=== PATIENT | female | born 1930 | race Caucasian/White ===

== ENCOUNTER 2017-10-03 23:33 | Inpatient (IN) | payer MEDICARE, MEDICAID ==
[~2017-10-03] VITALS: Ht 121.9 cm; Wt 46.7 kg
[2017-10-04 00:22] LABS: BASOPHILS % 0.6 % (0.0-2.0); EOSINOPHILS % 3.7 % (0.0-5.0); HEMATOCRIT. 38.4 % (36.0-48.0); LYMPHOCYTES % 19.5 % (20.0-50.0); MEAN CORPUSCULAR HEMOGLOBIN 25.5 pg (28.0-32.0); MEAN CORPUSCULAR VOLUME 81.5 fL (81.0-99.0); MEAN PLATELET VOLUME 8.5 fl (7.4-10.4); NEUTROPHILS % 62.2 % (40.0-76.0); PLATELET 325 x1000/uL (130-400); RED BLOOD CELL COUNT 4.71 mill/uL (4.2-5.4); RED CELL DISTRIBUTION WIDTH 18.1 % (11.6-14.6)
[2017-10-04 00:26] LABS: CHLORIDE 104 mEq/L (98-107)
[2017-10-04 00:45] LABS: ETHANOL BLOOD < 10 mg/dL
[2017-10-04 01:31] LABS: CLARITY URINE CLEAR (CLEAR); COLOR URINE YELLOW (YELLOW); KETONES URINE NEGATIVE (NEGATIVE); LEUKOCYTE ESTERASE URINE 1+ (NEGATIVE); NITRITE URINE POSITIVE (NEGATIVE); OCCULT BLOOD URINE 2+ (NEGATIVE); PH URINE 6.5 (4.5-8.0); PROTEIN URINE TRACE (NEGATIVE); SPECIFIC GRAVITY URINE 1.017 (1.005-1.030); UROBILINOGEN URINE 0.2 E.U./dL (0.2-1.0)
[2017-10-04 01:32] LABS: *AMPHETAMINES SCREEN URINE NEGATIVE (NEGATIVE); *BARBITURATES SCREEN URINE NEGATIVE (NEGATIVE); *BENZODIAZEPINES SCREEN URINE NEGATIVE (NEGATIVE); *COCAINE SCREEN URINE NEGATIVE (NEGATIVE); CANNABINOID URINE SCREEN NEGATIVE (NEGATIVE); METHADONE URINE SCREEN NEGATIVE (NEGATIVE); OPIATES URINE SCREEN NEGATIVE (NEGATIVE); PHENCYCLIDINE URINE SCREEN NEGATIVE (NEGATIVE)
[2017-10-04] MEDS ORDERED: VANCOMYCIN 1,500 MG in DEXT 5% WATER 250 ML IV SCH (04:30)
[2017-10-04] MEDS ORDERED: SODIUM CHLORIDE 0.9% 1000ML BAG (SEPSIS BOLUS) IV NR (04:30)
[2017-10-04] MEDS ORDERED: PIPERACILLIN/TAZOBACTAM 3.375GM/50ML PREMIX IV ONE (04:30)
[2017-10-04] MEDS ORDERED: VANCOMYCIN 1250MG in DEXTROSE 5% WATER 250ML IV NR (05:00)
[2017-10-04] MEDS ORDERED: PIPERACILLIN/TAZ 2.25G PREMIX 50 ML IV NR (05:00)
[2017-10-04] MEDS ORDERED: IPRATROPIUM/ALBUTEROL 0.5-3(2.5)MG/3ML NEB INH PRN (06:45)
[2017-10-04] MEDS ORDERED: KETOROLAC 15MG/ML VIAL IV PRN (06:45)
[2017-10-04] MEDS ORDERED: DIPHENHYDRAMINE 50MG/ML VIAL IV PRN (06:45)
[2017-10-04] MEDS ORDERED: GUAIFENESIN 200MG/10ML SUGAR FREE UDC PO PRN (06:45)
[2017-10-04] MEDS ORDERED: ONDANSETRON HCL 4MG/2ML VIAL IV PRN (06:45)
[2017-10-04] MEDS ORDERED: NITROGLYCERIN 0.4MG TABLET SL SL PRN (06:45)
[2017-10-04] MEDS ORDERED: TRAMADOL 50MG TABLET PO PRN (06:45)
[2017-10-04] MEDS ORDERED: ACETAMINOPHEN 325MG TABLET PO PRN (06:45)
[2017-10-04] MEDS ORDERED: MAGNESIUM/ALUMINUM HYDROXIDE/SIMETHICONE 30ML UDC PO PRN (06:45)
[2017-10-04] MEDS ORDERED: NA PHOS,M-B/NA PHOS,DI-BA ENEMA 118ML PR PRN (06:45)
[2017-10-04 08:00] VITALS: BP 147/81
[2017-10-04 09:00] VITALS: BP 147/81
[2017-10-04] MEDS ORDERED: ENOXAPARIN 40MG/0.4ML SYR SUBCUT SCH (09:00)
[2017-10-04 09:37] LABS: FOLIC ACID (FOLATE) SERUM >20 ng/mL ng/mL (>5.38)
[2017-10-04] MEDS ORDERED: DEXTROSE 50% WATER 50ML SYRINGE IV PRN ×2 (09:45)
[2017-10-04 09:46] LABS: VITAMIN B12 SERUM 719 pg/mL (211-911)
[2017-10-04] MEDS ORDERED: LEVOFLOXACIN 500MG PREMIX 100 ML IV SCH (10:00)
[2017-10-04] MEDS: ASPIRIN 325MG EC TABLET PO SCH (10:29)
[2017-10-04] MEDS: FAMOTIDINE 20MG/2ML VIAL IV SCH (10:29)
[2017-10-04] MEDS: LISINOPRIL 20MG TABLET PO SCH ×2 (10:29→21:22)
[2017-10-04] MEDS ORDERED: INSULIN LISPRO 100 UNITS/ML SUBCUT SCH (10:30)
[2017-10-04] MEDS: INSULIN LISPRO 100 UNITS/ML SUBCUT SCH ×4 (10:30→21:24)
[2017-10-04] MEDS: BLOOD SUGAR DIAGNOSTIC STRIP TEST SCH ×3 (10:30→21:38)
[2017-10-04 10:49] LABS: T4 FREE 1.06 ng/dL (0.76-1.46)
[2017-10-04 12:00] VITALS: BP 141/57
[2017-10-04] MEDS: CEFTRIAXONE 1 G PREMIX 50 ML IV SCH (14:00)
[2017-10-04 16:00] VITALS: BP 125/62
[2017-10-04 16:09] LABS: CREATINE KINASE 19 IU/L (26-192); CREATINE KINASE MB FRACTION < 0.5 ng/mL (0.5-3.6); TROPONIN I < 0.02 ng/mL (0.00-0.04)
[2017-10-04] MEDS ORDERED: INFLUENZA VIRUS VACCINE 0.5ML SYR IM ONE (16:30)
[2017-10-04] MEDS ORDERED: PNEUMOCOCCAL 23-VAL P-SAC VAC 0.5 ML IM ONE (16:30)
[2017-10-04] MEDS ORDERED: METF500T4 PO (17:43)
[2017-10-04] MEDS ORDERED: GABA-529 PO (17:43)
[2017-10-04] MEDS ORDERED: DOCU-150 PO (17:43)
[2017-10-04] MEDS ORDERED: LOSA25TA12 PO (17:43)
[2017-10-04] MEDS ORDERED: LORA1TAB PO (17:43)
[2017-10-04] MEDS ORDERED: CARV6.2548 PO (17:43)
[2017-10-04] MEDS ORDERED: MEMA5TAB7 PO (17:43)
[2017-10-04] MEDS ORDERED: MONT10TA24 PO (17:43)
[2017-10-04] MEDS ORDERED: DOXE50CA4 PO (17:43)
[2017-10-04] MEDS ORDERED: OMEP40CA34 PO (17:43)
[2017-10-04] MEDS: MONTELUKAST SODIUM 10MG TABLET PO SCH (19:06)
[2017-10-04 20:00] VITALS: BP 117/73
[2017-10-04] MEDS: CARVEDILOL 6.25 MG TABLET PO SCH (21:22)
[2017-10-05] VITALS: BP 136/55
[2017-10-05] MEDS ORDERED: NEOSODR OP (01:03)
[2017-10-05] MEDS ORDERED: NEOMYCIN/POLYMYXN B/GRAMICIDIN OPHTH DROPS 10ML LEFTEYE SCH (01:15)
[2017-10-05 04:00] VITALS: BP 108/56
[2017-10-05] MEDS: BLOOD SUGAR DIAGNOSTIC STRIP TEST SCH ×4 (06:40→21:18)
[2017-10-05] MEDS: INSULIN LISPRO 100 UNITS/ML SUBCUT SCH ×4 (07:33→21:10)
[2017-10-05 08:20] VITALS: BP 151/70
[2017-10-05] MEDS: CEFTRIAXONE 1 G PREMIX 50 ML IV SCH (08:21)
[2017-10-05] MEDS: LISINOPRIL 20MG TABLET PO SCH ×2 (08:23→21:10)
[2017-10-05] MEDS: DOCUSATE SODIUM 100MG CAPSULE PO PRN (08:23)
[2017-10-05] MEDS: CARVEDILOL 6.25 MG TABLET PO SCH ×2 (08:23→21:10)
[2017-10-05] MEDS: FAMOTIDINE 20MG/2ML VIAL IV SCH (08:23)
[2017-10-05] MEDS: NEO/POLYMYX B SULF/DEXAMETH 0.1% OPHTH SUSP 5ML OP SCH ×4 (08:23→21:10)
[2017-10-05] MEDS: ENOXAPARIN 30MG/0.3ML SYR SUBCUT SCH (08:25)
[2017-10-05] MEDS: ASPIRIN 325MG EC TABLET PO SCH (08:28)
[2017-10-05] MEDS: MEMANTINE HCL 5MG TABLET PO SCH (08:28)
[2017-10-05] MEDS: LEVOFLOXACIN 250MG PREMIX 50 ML IV SCH (10:04)
[2017-10-05 12:26] VITALS: BP 163/70
[2017-10-05 17:15] VITALS: BP 165/65
[2017-10-05] MEDS: CLONIDINE 0.1MG TABLET PO PRN (17:36)
[2017-10-05] MEDS: MONTELUKAST SODIUM 10MG TABLET PO SCH (17:36)
[2017-10-05 20:00] VITALS: BP 117/42
[2017-10-06] VITALS: BP 140/65
[2017-10-06] MEDS: NEO/POLYMYX B SULF/DEXAMETH 0.1% OPHTH SUSP 5ML OP SCH ×6 (01:48→22:06)
[2017-10-06] MEDS: DOCUSATE SODIUM 100MG CAPSULE PO PRN (01:48)
[2017-10-06 04:00] VITALS: BP 144/66
[2017-10-06] MEDS: BLOOD SUGAR DIAGNOSTIC STRIP TEST SCH ×4 (06:16→22:06)
[2017-10-06] MEDS: INSULIN LISPRO 100 UNITS/ML SUBCUT SCH ×4 (07:18→22:06)
[2017-10-06 08:00] VITALS: BP 143/74
[2017-10-06] MEDS: ENOXAPARIN 30MG/0.3ML SYR SUBCUT SCH (08:33)
[2017-10-06] MEDS: CARVEDILOL 6.25 MG TABLET PO SCH ×2 (08:34→22:06)
[2017-10-06] MEDS: MEMANTINE HCL 5MG TABLET PO SCH (08:38)
[2017-10-06] MEDS: LISINOPRIL 20MG TABLET PO SCH ×2 (08:38→22:06)
[2017-10-06] MEDS: ASPIRIN 325MG EC TABLET PO SCH (08:38)
[2017-10-06] MEDS: FAMOTIDINE 20MG/2ML VIAL IV SCH (08:48)
[2017-10-06] MEDS: LEVOFLOXACIN 250MG PREMIX 50 ML IV SCH (10:48)
[2017-10-06] MEDS: CEFTRIAXONE 1 G PREMIX 50 ML IV SCH (10:48)
[2017-10-06 12:00] VITALS: BP 151/67
[2017-10-06 16:00] VITALS: BP 147/61
[2017-10-06] MEDS: MONTELUKAST SODIUM 10MG TABLET PO SCH (16:19)
[2017-10-06 20:00] VITALS: BP 153/87
[2017-10-07] VITALS (10 sets, daily range): BP systolic 129–182; BP diastolic 53–89
[2017-10-07] MEDS: NEO/POLYMYX B SULF/DEXAMETH 0.1% OPHTH SUSP 5ML OP SCH ×3 (02:21→08:26)
[2017-10-07] MEDS: BLOOD SUGAR DIAGNOSTIC STRIP TEST SCH ×2 (06:45→12:58)
[2017-10-07] MEDS: INSULIN LISPRO 100 UNITS/ML SUBCUT SCH ×2 (06:46→13:51)
[2017-10-07] MEDS: LISINOPRIL 20MG TABLET PO SCH (08:25)
[2017-10-07] MEDS: CARVEDILOL 6.25 MG TABLET PO SCH (08:26)
[2017-10-07] MEDS: MEMANTINE HCL 5MG TABLET PO SCH (08:26)
[2017-10-07] MEDS: ENOXAPARIN 30MG/0.3ML SYR SUBCUT SCH (08:28)
[2017-10-07] MEDS: ASPIRIN 325MG EC TABLET PO SCH (08:28)
[2017-10-07] MEDS: FAMOTIDINE 20MG/2ML VIAL IV SCH (10:26)
[2017-10-07] MEDS: LEVOFLOXACIN 250MG PREMIX 50 ML IV SCH (10:26)
[2017-10-07] MEDS ORDERED: CEFTRIAXONE 1 G PREMIX 50 ML IV SCH (12:00)
[2017-10-07] MEDS: CLONIDINE 0.1MG TABLET PO PRN (15:32)
== END 2017-10-07 16:55 | disposition home or self-care (01) | DRG 689 ==
LOC: ER 23:33 → 7WST 10-04 04:54 → EDBEDREQ 10-04 04:56 → SUPCPDRO 10-04 06:31 → ENRESERV 10-04 07:35
PROVIDERS: ADMIT Internal Medicine; ATTEND Internal Medicine
DX: N39.0 Urinary tract infection, site not specified (principal); G92 Toxic encephalopathy; E43 Unspecified severe protein-calorie malnutrition; E11.9 Type 2 diabetes mellitus without complications; G30.9 Alzheimer's disease, unspecified; F02.80 Dementia in other diseases classified elsewhere, unspecified severity, without behavioral disturbance, psychotic disturbance, mood disturbance, and anxiety; I10 Essential (primary) hypertension; Z79.4 Long term (current) use of insulin; Z68.31 Body mass index [BMI] 31.0-31.9, adult
CPT/HCPCS: 36415; 70450; 70551; 71045; 80053; 80061; 80305; 81003; 82550; 82553; 82607; 82746; 82962; 83036; 83540; 83550; 83605; 84439; 84443; 84484; 85025; 87040; 90732; 93005; 93970; 96365; 96366; 96375; 97162; 97166; 97530; 99285; G0482; J0696; J1200; J1650; J1815; J1956; J2405; J2543; J3370; J3490; J7050; J7060